=== PATIENT | female | born 1980 | race Caucasian/White ===

== ENCOUNTER 2016-04-24 22:04 | Emergency (ER) | payer OTHER ==
[2016-04-24 23:06] LABS: BILIRUBIN NEGATIVE (NEGATIVE); BLOOD TRACE-LYSED Ery/uL (NEGATIVE); COLOR YELLOW (YELLOW); GLUCOSE (U) NORMAL (NORMAL); KETONE (U) NEGATIVE (NEGATIVE); LEUKOCYTES NEGATIVE Leu/uL (NEGATIVE); NITRITE NEGATIVE (NEGATIVE); PROTEIN NEGATIVE (NEGATIVE); SPECIFIC GRAVITY >=1.030 (1.001-1.030); UROBILINOGEN 0.2 mg/dL (0.2-1.0); pH 5.5 (5.0-9.0)
[2016-04-24 23:09] LABS: CLARITY SLIGHTLY HAZY (CLEAR)
[2016-04-24 23:26] LABS: BACTERIA TRACE; MUCOUS LARGE; SQUAMOUS EPITHELIAL CELLS >50; URINARY RBC RARE
== END 2016-04-25 01:05 | disposition home or self-care (01) ==
LOC: FER 22:04
PROVIDERS: Nurse Practitioner
DX: K57.32 Diverticulitis of large intestine without perforation or abscess without bleeding (principal); D25.9 Leiomyoma of uterus, unspecified; K21.9 Gastro-esophageal reflux disease without esophagitis; E78.5 Hyperlipidemia, unspecified; F17.210 Nicotine dependence, cigarettes, uncomplicated; Z88.1 Allergy status to other antibiotic agents; Z79.899 Other long term (current) drug therapy
CPT/HCPCS: 81001

== ENCOUNTER 2020-02-20 14:30 | Emergency (ER) | payer OTHER ==
[~2020-02-20 14:30] MED LIST: AUGMENTIN 875-1 EACH PO; BACTRIM DS PO; BENTYL10 MG PO; CARAFATE S500 MG/TSP PO; CIPRO500 MG PO; DIFLUCAN150 MG PO; IBUPROFEN800 MG PO; MEDROL4 M1 PO; METRONIDAZOLE500 MG PO; NEXIUM 40MG CAP40 MG PO; NORCO 5-325 TA1 EACH PO; ONDANSETRON ODT4 MG PO; ONDANSETRON ODT4 MG SL; PAXIL20 MG PO; PEPCID AC20 MG PO; PHENERGAN12.5 M1 PO; PRILOSEC20 MG PO; SYNTHROID175 MCG PO; ZOFRAN8 MG PO; ZYRTEC10 MG PO
[2020-02-20 15:46] LABS: BASOPHIL 0.4 % (0-2); HCT 34.4 % (37.0-47.0); HGB 10.6 g/dl (12.5-16.0); LYMPHOCYTE 27.9 % (15-48); MCH 25.6 pg (25.0-31.0); MCHC 30.8 g/dL (32.0-36.0); MCV 83.1 fL (78.0-100.0); MONOCYTE 9.5 % (0-12); MPV 9.4 fL (6.0-9.5); NRBC 0; PLT 244 K/uL (150-400); RBC 4.14 M/uL (4.20-5.40); RDW 16.3 % (11.5-14.0); WBC 4.7 K/uL (4.0-10.5)
[2020-02-20 16:14] LABS: ALBUMIN 3.2 g/dL (3.4-5.0); BILIRUBIN - TOTAL 0.2 mg/dL (0.2-1.0); BUN/CREAT RATIO (CALC) 10.8 RATIO; C-REACTIVE PROTEIN 0.5 mg/dL (<=0.90); CREATININE 0.74 mg/dL (0.51-0.95); GLOBULIN (CALCULATION) 4.1 g/dL; POTASSIUM 3.9 mmol/L (3.5-5.1); TOTAL PROTEIN 7.3 g/dL (6.4-8.2)
[2020-02-20 16:55] LABS: BILIRUBIN NEGATIVE (NEGATIVE); BLOOD NEGATIVE Ery/uL (NEGATIVE); CLARITY CLEAR (CLEAR); COLOR YELLOW (YELLOW); GLUCOSE (U) NORMAL (NORMAL); LEUKOCYTES NEGATIVE Leu/uL (NEGATIVE); NITRITE NEGATIVE (NEGATIVE); PROTEIN NEGATIVE (NEGATIVE); UROBILINOGEN 0.2 mg/dL (0.2-1.0); pH 7.5 (5.0-9.0)
[2020-02-20] MEDS ORDERED: NORCO 5-325 TA1 EACH PO (18:55)
[2020-02-20] MEDS ORDERED: PHENERGAN25 M1 PO (18:55)
== END 2020-02-20 19:27 | disposition home or self-care (01) ==
LOC: FER 14:30
PROVIDERS: Emergency Medicine
DX: K80.70 Calculus of gallbladder and bile duct without cholecystitis without obstruction (principal); R07.9 Chest pain, unspecified; F17.200 Nicotine dependence, unspecified, uncomplicated
CPT/HCPCS: 36415; 71250; 80053; 81003; 82728; 83615; 83690; 84145; 84484; 85025; 85379; 86140; 93005; J1170; J2405; J2550

== ENCOUNTER 2020-04-06 17:05 | Emergency (ER) | payer OTHER ==
[~2020-04-06 17:05] MED LIST changes: +PHENERGAN25 M1 PO
[2020-04-06 18:04] LABS: BASOPHIL 0.4 % (0-2); EOSINOPHIL 1.7 % (0-5); HCT 36.4 % (37.0-47.0); HGB 11.3 g/dl (12.5-16.0); LYMPHOCYTE 19.1 % (15-48); MCH 25.9 pg (25.0-31.0); MCV 83.5 fL (78.0-100.0); MONOCYTE 8.2 % (0-12); MPV 9.1 fL (6.0-9.5); NEUTROPHIL 70.2 % (41-80); NRBC 0; PLT 275 K/uL (150-400); RBC 4.36 M/uL (4.20-5.40); RDW 16.4 % (11.5-14.0); WBC 7.7 K/uL (4.0-10.5)
[2020-04-06 18:18] LABS: ALBUMIN 3.3 g/dL (3.4-5.0); BILIRUBIN - TOTAL 0.2 mg/dL (0.2-1.0); BUN/CREAT RATIO (CALC) 17.5 RATIO; CREATININE 0.8 mg/dL (0.51-0.95); POTASSIUM 4.2 mmol/L (3.5-5.1); TOTAL PROTEIN 7.3 g/dL (6.4-8.2)
[2020-04-06 18:23] LABS: LACTIC ACID 0.7 mmol/L (0.4-1.9)
[2020-04-06 19:21] LABS: BILIRUBIN NEGATIVE (NEGATIVE); BLOOD NEGATIVE Ery/uL (NEGATIVE); CLARITY CLEAR (CLEAR); COLOR YELLOW (YELLOW); GLUCOSE (U) NORMAL (NORMAL); LEUKOCYTES NEGATIVE Leu/uL (NEGATIVE); NITRITE NEGATIVE (NEGATIVE); PROTEIN NEGATIVE (NEGATIVE); SPECIFIC GRAVITY 1.015 (1.001-1.030); UROBILINOGEN 0.2 mg/dL (0.2-1.0)
[2020-04-06] MEDS ORDERED: PHENERGAN25 M1 PO (20:03)
[2020-04-06] MEDS ORDERED: PERCOCET 7.5-31 EACH PO (20:03)
[2020-04-06] MEDS ORDERED: AUGMENTIN 875-1 EACH PO (20:03)
== END 2020-04-06 20:15 | disposition home or self-care (01) ==
LOC: FER 17:05
PROVIDERS: Emergency Medicine
DX: K57.92 Diverticulitis of intestine, part unspecified, without perforation or abscess without bleeding (principal); I10 Essential (primary) hypertension; F17.210 Nicotine dependence, cigarettes, uncomplicated; Z87.19 Personal history of other diseases of the digestive system; Z98.51 Tubal ligation status; Z98.890 Other specified postprocedural states; Z88.1 Allergy status to other antibiotic agents
CPT/HCPCS: 36415; 80053; 81003; 83605; 85025; 87040; J1885; Q0169

== ENCOUNTER 2020-09-06 20:36 | Day surgery (SDCO) | payer OTHER ==
[~2020-09-06] VITALS: Ht 172.7 cm; Wt 157.2 kg
[~2020-09-06 20:36] MED LIST changes: -PAXIL20 MG PO; +PAXIL40 MG PO; +PERCOCET 7.5-31 EACH PO; +SYNTHROID100 MCG PO; -SYNTHROID175 MCG PO
[2020-09-06 21:41] LABS: BASOPHIL 0.4 % (0-2); EOSINOPHIL 1.3 % (0-5); HCT 38.9 % (37.0-47.0); HGB 11.8 g/dl (12.5-16.0); LYMPHOCYTE 15.8 % (15-48); MCH 24.6 pg (25.0-31.0); MCHC 30.3 g/dL (32.0-36.0); MONOCYTE 6.7 % (0-12); MPV 8.8 fL (6.0-9.5); NEUTROPHIL 75.5 % (41-80); NRBC 0; PLT 353 K/uL (150-400); RDW 17.5 % (11.5-14.0); WBC 11.4 K/uL (4.0-10.5)
[2020-09-06 21:51] LABS: ALBUMIN 3.7 g/dL (3.4-5.0); BILIRUBIN - TOTAL 0.3 mg/dL (0.2-1.0); BUN/CREAT RATIO (CALC) 15.4 RATIO; CREATININE 0.78 mg/dL (0.51-0.95); GLOBULIN (CALCULATION) 4.5 g/dL; POTASSIUM 4.2 mmol/L (3.5-5.1); TOTAL PROTEIN 8.2 g/dL (6.4-8.2)
[2020-09-07] MEDS ORDERED: GLUCOSE33 GM PO (04:01)
[2020-09-07 06:46] LABS: BILIRUBIN NEGATIVE (NEGATIVE); BLOOD NEGATIVE Ery/uL (NEGATIVE); CLARITY CLEAR (CLEAR); COLOR YELLOW (YELLOW); GLUCOSE (U) NORMAL (NORMAL); LEUKOCYTES NEGATIVE Leu/uL (NEGATIVE); NITRITE NEGATIVE (NEGATIVE); PROTEIN NEGATIVE (NEGATIVE); pH 5.5 (5.0-9.0)
--- NOTE | 2020-09-07 14:40 | NUR ---
PATIENT TRANSFERRED TO [facility] FROM PACU AFTER BEING SEEN IN ER AND TAKEN TO SURGERY FOR LAP APPY. ADMISSION DATABASE COMPLETED UPON ARRIVAL TO [facility] FLOOR. UNSURE OF ACCURACY OF INFORMATION DUE TO PATIENT BEING LETHARGIC FROM ANESTHESIA AT TIME DATABASE COMPLETED.
[2020-09-07] MEDS ORDERED: PAXIL10 MG PO (17:07)
[2020-09-08 04:32] LABS: BASOPHIL 0.2 % (0-2); EOSINOPHIL 0.2 % (0-5); HCT 32.4 % (37.0-47.0); HGB 9.6 g/dl (12.5-16.0); LYMPHOCYTE 9.4 % (15-48); MCH 24.3 pg (25.0-31.0); MCHC 29.6 g/dL (32.0-36.0); MONOCYTE 8.5 % (0-12); MPV 8.6 fL (6.0-9.5); NEUTROPHIL 80.5 % (41-80); NRBC 0; PLT 273 K/uL (150-400); RBC 3.95 M/uL (4.20-5.40); RDW 17.2 % (11.5-14.0); WBC 9.4 K/uL (4.0-10.5)
[2020-09-08 04:55] LABS: BUN/CREAT RATIO (CALC) 14.3 RATIO; CREATININE 0.77 mg/dL (0.51-0.95); POTASSIUM 4.3 mmol/L (3.5-5.1)
--- NOTE | 2020-09-08 09:23 | NUR ---
IV OUT D/T PT GETTING UP TO RESTROOM PER NIGHTSHIFT NURSE. NOTIFIED, STATES WILL CHANGE IV ANTIBIOTICS TO PO AND PATIENT DISCHARGING, NO NEED TO PUT IN NEW IV AT THIS TIME.
[2020-09-08] MEDS ORDERED: PERCOCET 10-321 EACH PO (11:33)
[2020-09-08] MEDS ORDERED: AUGMENTIN 875-1 EACH PO (11:33)
[2020-09-08] MEDS ORDERED: PHENERGAN25 M1 PO (11:33)
--- NOTE | 2020-09-08 14:42 | NUR ---
DISCUSSED DISCHARGE INSTRUCTIONS WITH PATIENT. IV PULLED PRIOR TO DISCHARGE, NO BLEEDING THRU DRESSING APPLIED. PATIENT IN STABLE CONDITION. DISCUSSED DISCHARGE ORDERS, PRESCRIPTIONS AND FOLLOW UP APTS NEEDED TO BE MADE. HOME WITH DAUGHTER. D/C HOME
== END 2020-09-08 13:15 | disposition home or self-care (01) ==
LOC: FER 20:36 → FMS 09-07 09:30
PROVIDERS: Emergency Medicine; Nurse Practitioner; ADMIT Surgery
DX: K35.80 Unspecified acute appendicitis (principal); D25.9 Leiomyoma of uterus, unspecified; E66.01 Morbid (severe) obesity due to excess calories; K29.50 Unspecified chronic gastritis without bleeding; K21.9 Gastro-esophageal reflux disease without esophagitis; K57.90 Diverticulosis of intestine, part unspecified, without perforation or abscess without bleeding; D64.9 Anemia, unspecified; E55.9 Vitamin D deficiency, unspecified; E78.5 Hyperlipidemia, unspecified; D68.51 Activated protein C resistance; F41.1 Generalized anxiety disorder; F32.9 Major depressive disorder, single episode, unspecified; E03.9 Hypothyroidism, unspecified; F17.210 Nicotine dependence, cigarettes, uncomplicated; Z68.43 Body mass index [BMI] 50.0-59.9, adult; Z79.899 Other long term (current) drug therapy; Z88.8 Allergy status to other drugs, medicaments and biological substances; Z88.1 Allergy status to other antibiotic agents; Z20.822 Contact with and (suspected) exposure to COVID-19; Z98.51 Tubal ligation status; Z90.89 Acquired absence of other organs
CPT/HCPCS: 36415; 80048; 80053; 81003; 83690; 85025; 87070; 87075; 87205; 94010; C9113; G0378; J1100; J1170; J1200; J1630; J2250; J2405; J2543; J2704; J2710; J3010; J7030; J7120; Q0169; Q9967; U0002

== ENCOUNTER 2020-10-06 18:16 | Emergency (ER) | payer OTHER ==
[~2020-10-06 18:16] MED LIST changes: +GLUCOSE33 GM PO; +PAXIL10 MG PO; +PERCOCET 10-321 EACH PO
[2020-10-06 18:57] LABS: BASOPHIL 0.5 % (0-2); EOSINOPHIL 3.3 % (0-5); HCT 34.9 % (37.0-47.0); HGB 10.6 g/dl (12.5-16.0); LYMPHOCYTE 27.5 % (15-48); MCH 24.5 pg (25.0-31.0); MCHC 30.4 g/dL (32.0-36.0); MCV 80.8 fL (78.0-100.0); MONOCYTE 9.8 % (0-12); NEUTROPHIL 58.7 % (41-80); NRBC 0; PLT 268 K/uL (150-400); RBC 4.32 M/uL (4.20-5.40); RDW 17.2 % (11.5-14.0)
[2020-10-06 19:13] LABS: ALBUMIN 3.5 g/dL (3.4-5.0); BILIRUBIN - TOTAL 0.2 mg/dL (0.2-1.0); BUN/CREAT RATIO (CALC) 13.4 RATIO; CREATININE 0.67 mg/dL (0.51-0.95); GLOBULIN (CALCULATION) 3.7 g/dL; POTASSIUM 4.3 mmol/L (3.5-5.1); TOTAL PROTEIN 7.2 g/dL (6.4-8.2)
== END 2020-10-06 20:24 | disposition home or self-care (01) ==
LOC: FER 18:16
PROVIDERS: Emergency Medicine
DX: R07.89 Other chest pain (principal); F17.200 Nicotine dependence, unspecified, uncomplicated; Z88.1 Allergy status to other antibiotic agents; Z88.8 Allergy status to other drugs, medicaments and biological substances
CPT/HCPCS: 36415; 71045; 71275; 80053; 84484; 85025; 85379; 93005; J0780; J2405; Q9967

== ENCOUNTER 2020-11-17 14:49 | Emergency (ER) | payer OTHER ==
[2020-11-17 15:40] LABS: BASOPHIL 0.5 % (0-2); EOSINOPHIL 1.9 % (0-5); HCT 38.1 % (37.0-47.0); HGB 11.4 g/dl (12.5-16.0); LYMPHOCYTE 25.4 % (15-48); MCH 24.5 pg (25.0-31.0); MCHC 29.9 g/dL (32.0-36.0); MCV 81.8 fL (78.0-100.0); MONOCYTE 8.5 % (0-12); MPV 9.2 fL (6.0-9.5); NEUTROPHIL 63.3 % (41-80); NRBC 0; PLT 331 K/uL (150-400); RBC 4.66 M/uL (4.20-5.40); RDW 17.7 % (11.5-14.0); WBC 7.8 K/uL (4.0-10.5)
[2020-11-17 15:54] LABS: ALBUMIN 3.5 g/dL (3.4-5.0); BILIRUBIN - TOTAL 0.3 mg/dL (0.2-1.0); BUN/CREAT RATIO (CALC) 17.3 RATIO; CREATININE 0.75 mg/dL (0.51-0.95); GLOBULIN (CALCULATION) 3.9 g/dL; TOTAL PROTEIN 7.4 g/dL (6.4-8.2)
[2020-11-17 20:54] LABS: BILIRUBIN NEGATIVE (NEGATIVE); BLOOD 2+ Ery/uL (NEGATIVE); CLARITY CLEAR (CLEAR); COLOR YELLOW (YELLOW); GLUCOSE (U) NORMAL (NORMAL); LEUKOCYTES NEGATIVE Leu/uL (NEGATIVE); NITRITE NEGATIVE (NEGATIVE); PROTEIN NEGATIVE (NEGATIVE); SPECIFIC GRAVITY 1.025 (1.001-1.030); UROBILINOGEN 0.2 mg/dL (0.2-1.0)
[2020-11-17 21:01] LABS: AMORPHOUS URATES CRYSTALS TRACE; BACTERIA 1+; MUCOUS MODERATE; URINARY RBC RARE
== END 2020-11-17 22:39 | disposition home or self-care (01) ==
LOC: FER 14:49
PROVIDERS: Internal Medicine
DX: R07.89 Other chest pain (principal); K21.9 Gastro-esophageal reflux disease without esophagitis; F17.200 Nicotine dependence, unspecified, uncomplicated
CPT/HCPCS: 36415; 71045; 80053; 81001; 83690; 84484; 85025; 85379; 93005; J1885

== ENCOUNTER 2021-01-16 01:24 | Day surgery (SDCO) | payer OTHER ==
[~2021-01-16] VITALS: Ht 172.7 cm; Wt 163.9 kg
[2021-01-16 01:59] LABS: BASOPHIL 0.5 % (0-2); HCT 37.2 % (37.0-47.0); HGB 11.3 g/dl (12.5-16.0); LYMPHOCYTE 28.4 % (15-48); MCHC 30.4 g/dL (32.0-36.0); MCV 82.3 fL (78.0-100.0); MONOCYTE 8.1 % (0-12); MPV 9.4 fL (6.0-9.5); NEUTROPHIL 59.7 % (41-80); NRBC 0; PLT 394 K/uL (150-400); RBC 4.52 M/uL (4.20-5.40); RDW 17.3 % (11.5-14.0); WBC 9.7 K/uL (4.0-10.5)
[2021-01-16 02:21] LABS: LACTIC ACID 1.9 mmol/L (0.4-1.9)
[2021-01-16 02:37] LABS: ALBUMIN 3.8 g/dL (3.4-5.0); BILIRUBIN - TOTAL 0.2 mg/dL (0.2-1.0); BUN/CREAT RATIO (CALC) 10.5 RATIO; CREATININE 0.86 mg/dL (0.51-0.95); GLOBULIN (CALCULATION) 4.1 g/dL; TOTAL PROTEIN 7.9 g/dL (6.4-8.2)
[2021-01-16] MEDS ORDERED: ATIVAN0.5 MG PO (05:57)
[2021-01-17] MEDS ORDERED: PHENERGAN25 M1 PO (09:33)
[2021-01-17] MEDS ORDERED: PERCOCET 5-3251 EACH PO (09:33)
[2021-01-17] MEDS ORDERED: LOVENOX40 MG/0.4 SC (09:36)
== END 2021-01-17 11:50 | disposition home or self-care (01) ==
LOC: FER 01:24 → FMS 05:18
PROVIDERS: Emergency Medicine Emergency Medical Services; ADMIT Family Medicine
DX: K80.10 Calculus of gallbladder with chronic cholecystitis without obstruction (principal); E03.9 Hypothyroidism, unspecified; E78.5 Hyperlipidemia, unspecified; D68.51 Activated protein C resistance; E66.01 Morbid (severe) obesity due to excess calories; K21.9 Gastro-esophageal reflux disease without esophagitis; F17.210 Nicotine dependence, cigarettes, uncomplicated; K76.0 Fatty (change of) liver, not elsewhere classified; D25.9 Leiomyoma of uterus, unspecified; I25.2 Old myocardial infarction; Z68.43 Body mass index [BMI] 50.0-59.9, adult; Z90.49 Acquired absence of other specified parts of digestive tract; Z98.51 Tubal ligation status; Z88.1 Allergy status to other antibiotic agents; Z88.8 Allergy status to other drugs, medicaments and biological substances; Z20.822 Contact with and (suspected) exposure to COVID-19
CPT/HCPCS: 36415; 80053; 82150; 83605; 83690; 84145; 84703; 85025; 94010; 94762; G0378; J0780; J1100; J1170; J1650; J1885; J2250; J2405; J2543; J2550; J2704; J2710; J3010; J7030; J7120; U0002

== ENCOUNTER 2021-02-24 14:06 | Emergency (ER) | payer OTHER ==
[~2021-02-24 14:06] MED LIST changes: +ATIVAN0.5 MG PO; +LOVENOX40 MG/0.4 SC; +PERCOCET 5-3251 EACH PO
== END 2021-02-24 16:25 | disposition home or self-care (01) ==
LOC: FER 14:06
DX: J06.9 Acute upper respiratory infection, unspecified (principal); B97.89 Other viral agents as the cause of diseases classified elsewhere; K12.2 Cellulitis and abscess of mouth; F17.210 Nicotine dependence, cigarettes, uncomplicated; Z88.1 Allergy status to other antibiotic agents; Z88.5 Allergy status to narcotic agent; Z88.8 Allergy status to other drugs, medicaments and biological substances
CPT/HCPCS: 87880; 99283

== ENCOUNTER 2021-04-19 12:01 | Emergency (ER) | payer OTHER ==
[2021-04-19 14:15] LABS: BASOPHIL 0.5 % (0-2); EOSINOPHIL 1.4 % (0-5); HCT 33.9 % (37.0-47.0); HGB 10.1 g/dl (12.5-16.0); LYMPHOCYTE 16.6 % (15-48); MCHC 29.8 g/dL (32.0-36.0); MCV 80.5 fL (78.0-100.0); MONOCYTE 9.4 % (0-12); MPV 9.3 fL (6.0-9.5); NEUTROPHIL 71.8 % (41-80); NRBC 0; PLT 307 K/uL (150-400); RBC 4.21 M/uL (4.20-5.40); RDW 16.3 % (11.5-14.0); WBC 6.5 K/uL (4.0-10.5)
[2021-04-19 14:50] LABS: ALBUMIN 3.2 g/dL (3.4-5.0); ALKALINE PHOSHATASE 104 U/L (46-116); ALT 21 U/L (14-59); AST 12 U/L (15-37); BILIRUBIN - TOTAL 0.3 mg/dL (0.2-1.0); BUN 8 mg/dL (7-18); BUN/CREAT RATIO (CALC) 11.4 RATIO; CHLORIDE 101 mmol/L (98-107); CO2 (BICARBONATE) 25 mmol/L (21-32); CPK 33 U/L (26-192); GLOBULIN (CALCULATION) 4.3 g/dL; GLUCOSE 101 mg/dL (74-106); POTASSIUM 4.1 mmol/L (3.5-5.1); TOTAL PROTEIN 7.5 g/dL (6.4-8.2)
[2021-04-19] MEDS ORDERED: CARAFATE S500 MG/TSP PO (16:47)
[2021-04-19] MEDS ORDERED: DICYCLOMINE HCL20 MG PO (16:47)
== END 2021-04-19 17:09 | disposition home or self-care (01) ==
LOC: FER 12:01
PROVIDERS: Emergency Medicine
DX: R07.89 Other chest pain (principal); R16.1 Splenomegaly, not elsewhere classified; Z20.822 Contact with and (suspected) exposure to COVID-19; Z88.1 Allergy status to other antibiotic agents; Z88.5 Allergy status to narcotic agent; Z88.8 Allergy status to other drugs, medicaments and biological substances
CPT/HCPCS: 36415; 71250; 80053; 82550; 84145; 84484; 85025; 86140; 93005; J1170; J2060; J2405; J2550; U0002

== ENCOUNTER 2021-04-24 21:07 | Emergency (ER) | payer OTHER ==
[~2021-04-24 21:07] MED LIST changes: +DICYCLOMINE HCL20 MG PO
[2021-04-25 00:13] LABS: BASOPHIL 0.6 % (0-2); EOSINOPHIL 1.8 % (0-5); HCT 32.6 % (37.0-47.0); HGB 9.8 g/dl (12.5-16.0); LYMPHOCYTE 16.6 % (15-48); MCH 24.1 pg (25.0-31.0); MCHC 30.1 g/dL (32.0-36.0); MCV 80.3 fL (78.0-100.0); MPV 8.9 fL (6.0-9.5); NEUTROPHIL 65.6 % (41-80); NRBC 0; PLT 320 K/uL (150-400); RBC 4.06 M/uL (4.20-5.40); RDW 16.2 % (11.5-14.0); WBC 4.9 K/uL (4.0-10.5)
[2021-04-25 00:31] LABS: ALBUMIN 3.1 g/dL (3.4-5.0); BILIRUBIN - TOTAL 0.3 mg/dL (0.2-1.0); BUN/CREAT RATIO (CALC) 5.5 RATIO; CREATININE 0.73 mg/dL (0.51-0.95); GLOBULIN (CALCULATION) 4.6 g/dL; POTASSIUM 3.5 mmol/L (3.5-5.1); TOTAL PROTEIN 7.7 g/dL (6.4-8.2)
[2021-04-25 02:55] LABS: HGB 8.9 g/dL (12.5-16.0)
[2021-04-25 05:01] LABS: HCT 31.1 % (37.0-47.0); HGB 9.4 g/dL (12.5-16.0)
== END 2021-04-25 06:40 | disposition other institution (70) ==
LOC: FER 21:07
PROVIDERS: Internal Medicine
DX: J98.59 Other diseases of mediastinum, not elsewhere classified (principal); K92.0 Hematemesis; D50.0 Iron deficiency anemia secondary to blood loss (chronic); Z88.1 Allergy status to other antibiotic agents; Z88.5 Allergy status to narcotic agent
CPT/HCPCS: 36415; 71045; 80053; 85014; 85018; 85025; C9113; J1170; J2060; J2405; J2550

== ENCOUNTER 2021-07-20 02:54 | Emergency (ER) | payer OTHER ==
[2021-07-20] MEDS ORDERED: NORCO 5-325 TA1 EACH PO (03:34)
== END 2021-07-20 04:00 | disposition home or self-care (01) ==
LOC: FER 02:54
DX: H60.92 Unspecified otitis externa, left ear (principal); Z28.310 Unvaccinated for COVID-19
CPT/HCPCS: 99282; J1100

== ENCOUNTER 2021-09-14 02:09 | Emergency (ER) | payer OTHER ==
[2021-09-14 04:17] LABS: INFLUENZA A NAA NEGATIVE (NEGATIVE)
[2021-09-14 04:22] LABS: CORONAVIRUS 2019 SARS-COV-2 POSITIVE (NEGATIVE)
[2021-09-14] MEDS ORDERED: ONDANSETRON ODT4 MG PO (04:36)
[2021-09-14] MEDS ORDERED: PAXLOVID CO-PA1 EAC1 PO (04:36)
== END 2021-09-14 05:57 | disposition home or self-care (01) ==
LOC: FER 02:09
PROVIDERS: Emergency Medicine
DX: U07.1 COVID-19 (principal); E03.9 Hypothyroidism, unspecified; Z79.890 Hormone replacement therapy; Z88.1 Allergy status to other antibiotic agents; Z88.6 Allergy status to analgesic agent
CPT/HCPCS: 96372; J1885; J7030; U0002

== ENCOUNTER 2021-09-16 14:02 | Emergency (ER) | payer OTHER ==
[~2021-09-16 14:02] MED LIST changes: +PAXLOVID CO-PA1 EAC1 PO
[2021-09-16 15:09] LABS: BASOPHIL 0.7 % (0-2); EOSINOPHIL 0 % (0-5); HGB 12.3 g/dl (12.5-16.0); LYMPHOCYTE 30.3 % (15-48); MCH 27.2 pg (25.0-31.0); MCHC 31.5 g/dL (32.0-36.0); MCV 86.1 fL (78.0-100.0); MONOCYTE 13.8 % (0-12); MPV 9.1 fL (6.0-9.5); NEUTROPHIL 53.9 % (41-80); NRBC 0; PLT 186 K/uL (150-400); RBC 4.53 M/uL (4.20-5.40); RDW 15.9 % (11.5-14.0)
[2021-09-16 15:23] LABS: BUN/CREAT RATIO (CALC) 11.1 RATIO; CREATININE 0.72 mg/dL (0.51-0.95); POTASSIUM 3.3 mmol/L (3.5-5.1)
[2021-09-16 15:48] LABS: WBC 1.5 K/uL (4.0-10.5)
[2021-09-16] MEDS ORDERED: K-TAB ER20 MEQ PO (17:13)
== END 2021-09-16 17:49 | disposition home or self-care (01) ==
LOC: FER 14:02
PROVIDERS: Nurse Practitioner Family
DX: U07.1 COVID-19 (principal); R00.0 Tachycardia, unspecified; E87.6 Hypokalemia; E03.9 Hypothyroidism, unspecified; K21.9 Gastro-esophageal reflux disease without esophagitis; Z88.1 Allergy status to other antibiotic agents; Z88.5 Allergy status to narcotic agent; Z88.8 Allergy status to other drugs, medicaments and biological substances; Z79.890 Hormone replacement therapy; Z79.899 Other long term (current) drug therapy
CPT/HCPCS: 36415; 71250; 80048; 85025; 85379; J2060; J2405; J7030

== ENCOUNTER 2021-09-21 19:29 | Emergency (ER) | payer OTHER ==
[~2021-09-21 19:29] MED LIST changes: +K-TAB ER20 MEQ PO
[2021-09-21 21:09] LABS: BASOPHIL 0.3 % (0-2); EOSINOPHIL 4.2 % (0-5); HCT 40.1 % (37.0-47.0); HGB 12.9 g/dl (12.5-16.0); LYMPHOCYTE 24.6 % (15-48); MCH 27.2 pg (25.0-31.0); MCHC 32.2 g/dL (32.0-36.0); MCV 84.4 fL (78.0-100.0); MONOCYTE 9.6 % (0-12); MPV 10.3 fL (6.0-9.5); NRBC 0; PLT 269 K/uL (150-400); RBC 4.75 M/uL (4.20-5.40); RDW 15.7 % (11.5-14.0); WBC 3.1 K/uL (4.0-10.5)
[2021-09-21 22:15] LABS: ALBUMIN 3.9 g/dL (3.4-5.0); ALKALINE PHOSHATASE 72 U/L (46-116); ALT 32 U/L (14-59); AST 23 U/L (15-37); BILIRUBIN - TOTAL 0.3 mg/dL (0.2-1.0); BUN 12 mg/dL (7-18); BUN/CREAT RATIO (CALC) 14.6 RATIO; CHLORIDE 102 mmol/L (98-107); CO2 (BICARBONATE) 27 mmol/L (21-32); CREATININE 0.82 mg/dL (0.51-0.95); GLOBULIN (CALCULATION) 3.8 g/dL; GLUCOSE 104 mg/dL (74-106); TOTAL PROTEIN 7.7 g/dL (6.4-8.2)
== END 2021-09-22 00:28 | disposition home or self-care (01) ==
LOC: FER 19:29
PROVIDERS: Emergency Medicine
DX: U07.1 COVID-19 (principal); F41.9 Anxiety disorder, unspecified; Z88.1 Allergy status to other antibiotic agents; Z88.6 Allergy status to analgesic agent; Z28.310 Unvaccinated for COVID-19
CPT/HCPCS: 36415; 71275; 80053; 84439; 84443; 84484; 85025; 85379; 94640; 94664; J2405; J7030; Q9967

== ENCOUNTER 2021-09-26 19:34 | Emergency (ER) | payer OTHER ==
[2021-09-26 20:05] LABS: BASOPHIL 0.4 % (0-2); EOSINOPHIL 1.5 % (0-5); HCT 40.4 % (37.0-47.0); HGB 12.8 g/dl (12.5-16.0); LYMPHOCYTE 21.2 % (15-48); MCH 27.1 pg (25.0-31.0); MCHC 31.7 g/dL (32.0-36.0); MCV 85.6 fL (78.0-100.0); MONOCYTE 9.9 % (0-12); MPV 9.4 fL (6.0-9.5); NEUTROPHIL 66.8 % (41-80); NRBC 0; PLT 264 K/uL (150-400); RBC 4.72 M/uL (4.20-5.40); RDW 15.6 % (11.5-14.0); WBC 4.8 K/uL (4.0-10.5)
[2021-09-26 20:27] LABS: BUN/CREAT RATIO (CALC) 15.5 RATIO; CREATININE 0.71 mg/dL (0.51-0.95)
[2021-09-26] MEDS ORDERED: ATARAX25 MG PO (20:53)
== END 2021-09-26 21:21 | disposition home or self-care (01) ==
LOC: FER 19:34
PROVIDERS: Emergency Medicine
DX: F41.9 Anxiety disorder, unspecified (principal); R07.89 Other chest pain; E03.9 Hypothyroidism, unspecified; Z28.310 Unvaccinated for COVID-19; Z86.16 Personal history of COVID-19; Z88.1 Allergy status to other antibiotic agents; Z88.5 Allergy status to narcotic agent; Z88.8 Allergy status to other drugs, medicaments and biological substances; Z79.890 Hormone replacement therapy
CPT/HCPCS: 36415; 71045; 80048; 84484; 85025; 93005; J2550

== ENCOUNTER 2021-10-08 16:42 | Emergency (ER) | payer OTHER ==
[~2021-10-08 16:42] MED LIST changes: +ATARAX25 MG PO
[2021-10-09] MEDS ORDERED: PHENERGAN25 M1 PO ×2 (04:35→04:36)
[2021-10-09] MEDS ORDERED: PERCOCET 5-3251 EACH PO ×2 (04:35→04:37)
== END 2021-10-08 18:21 | disposition left against medical advice (07) ==
LOC: FER 16:42
DX: R07.9 Chest pain, unspecified (principal); M54.9 Dorsalgia, unspecified; Z53.29 Procedure and treatment not carried out because of patient's decision for other reasons; Z88.1 Allergy status to other antibiotic agents; Z88.5 Allergy status to narcotic agent; Z88.8 Allergy status to other drugs, medicaments and biological substances
CPT/HCPCS: 93005

== ENCOUNTER 2021-10-08 21:36 | Emergency (ER) | payer OTHER ==
[2021-10-08 22:04] LABS: BASOPHIL 0.3 % (0-2); EOSINOPHIL 1.7 % (0-5); HCT 34.9 % (37.0-47.0); HGB 11.2 g/dl (12.5-16.0); LYMPHOCYTE 18.7 % (15-48); MCHC 32.1 g/dL (32.0-36.0); MCV 87.3 fL (78.0-100.0); MPV 9.1 fL (6.0-9.5); NEUTROPHIL 71.1 % (41-80); NRBC 0; PLT 236 K/uL (150-400); WBC 5.9 K/uL (4.0-10.5)
[2021-10-08 22:19] LABS: INR 0.95 (0.9-1.2); PROTHROMBIN TIME 12.4 SECONDS (11.9-13.9); PTT 27.8 SECONDS (24.9-34.6)
[2021-10-08 22:31] LABS: ALBUMIN 3.5 g/dL (3.4-5.0); BILIRUBIN - TOTAL 0.3 mg/dL (0.2-1.0); CREATININE 0.69 mg/dL (0.51-0.95); GLOBULIN (CALCULATION) 3.6 g/dL; POTASSIUM 3.3 mmol/L (3.5-5.1); TOTAL PROTEIN 7.1 g/dL (6.4-8.2)
[2021-10-09 01:18] LABS: CORONAVIRUS 2019 SARS-COV-2 NEGATIVE (NEGATIVE); INFLUENZA A NAA NEGATIVE (NEGATIVE)
[2021-10-09] MEDS ORDERED: PHENERGAN25 M1 PO ×2 (04:35→04:36)
[2021-10-09] MEDS ORDERED: PERCOCET 5-3251 EACH PO ×2 (04:35→04:37)
== END 2021-10-09 05:18 | disposition home or self-care (01) ==
LOC: FER 21:36
PROVIDERS: Internal Medicine
DX: K21.9 Gastro-esophageal reflux disease without esophagitis (principal); R07.89 Other chest pain; Z87.891 Personal history of nicotine dependence; Z88.1 Allergy status to other antibiotic agents; Z88.6 Allergy status to analgesic agent; Z20.822 Contact with and (suspected) exposure to COVID-19
CPT/HCPCS: 36415; 71045; 80053; 83690; 84484; 85025; 85610; 85730; 93005; J1170; J2405; J2550; U0002